=== PATIENT | male | born 1960 | race Caucasian/White ===

== ENCOUNTER 2018-02-19 06:08 | Day surgery (SDC) | payer BC ==
[~2018-02-19 06:08] MED LIST: ACETAMINOPHEN 1,000 MG/100 ML BTL IV ONE; CELECOXIB 100 MG CAPSULE PO ONE; FAMOTIDINE 20MG TABLET PO ONE; MECLIZINE 25 MG TABLET PO ONE; METOCLOPRAMIDE 10 MG TABLET PO ONE; VANCOMYCIN HCL 1,000 MG in DEXTROSE 5 % IN WATER 250 ML IVPB ONE
[2018-02-19] MEDS ORDERED: LIDOCAINE 2% MDV (20MG/ML) 20ML VIAL IV ONE (06:09)
[2018-02-19] MEDS ORDERED: VANCOMYCIN HCL 1 GM VIAL IVPB ONE ×2 (06:09)
[2018-02-19] MEDS ORDERED: PROPOFOL 10 MG/ML VIAL IV ONE (06:09)
[2018-02-19] MEDS ORDERED: KETOROLAC 30 MG/ML VIAL IVP ONE (06:09)
[2018-02-19] MEDS ORDERED: TRANEXAMIC ACID 1,000 MG/10 ML ML IV ONE ×2 (06:09)
[2018-02-19] MEDS ORDERED: BUPIVACAINE 0.5% W/EPI MPF 30 ML VIAL IVP ONE ×2 (06:09)
[2018-02-19] MEDS ORDERED: BUPIVACAINE LIPOSOME 266MG/20ML VIAL IV ONE (06:09)
[2018-02-19] MEDS ORDERED: MIDAZOLAM HCL 2MG/2ML VIAL IV ONE (06:09)
[2018-02-19] MEDS ORDERED: ROPIVACAINE HCL (NAROPIN) /PF 5MG/ML 20ML VIAL IV ONE (06:09)
[2018-02-19] MEDS ORDERED: DEXAMETHASONE 4 MG/ML 1ML VIAL IVP ONE (06:09)
[2018-02-19 06:40] LABS: ABO GROUP O; RH TYPE NEGATIVE
[2018-02-19 06:52] LABS: ANTIBODY SCREEN NEGATIVE (NEGATIVE)
[2018-02-19] MEDS ORDERED: PROMETHAZINE HCL 12.5 MG in 0.9 % SODIUM CHLORIDE 100ML 50 ML IVPB PRN (08:17)
[2018-02-19] MEDS ORDERED: BISACODYL 10 MG SUPP RC PRN (08:17)
[2018-02-19] MEDS ORDERED: ACETAMINOPHEN W/ CODEINE 300MG/30MG TABLET PO PRN ×2 (08:17)
[2018-02-19] MEDS ORDERED: AL HYDROX/MAG HYDROX 30ML UD PO PRN (08:17)
[2018-02-19] MEDS ORDERED: TRAMADOL HCL 50 MG TABLET PO PRN ×2 (08:17)
[2018-02-19] MEDS ORDERED: ONDANSETRON HCL IV 4 MG/2 ML VIAL IVP PRN (08:17)
[2018-02-19] MEDS ORDERED: METOCLOPRAMIDE HCL 10 MG/2 ML VIAL IVP PRN (08:17)
[2018-02-19] MEDS ORDERED: DIPHENHYDRAMINE HCL 25 MG CAPSULE PO PRN (08:17)
[2018-02-19] MEDS ORDERED: NALOXONE 0.4 MG/1 ML VIAL IVP PRN (08:17)
[2018-02-19] MEDS ORDERED: MAGNESIUM HYDROXIDE 30 ML UDC PO PRN (08:17)
[2018-02-19] MEDS ORDERED: ACETAMINOPHEN W/ CODEINE 300MG/60MG TABLET PO PRN ×2 (08:17)
[2018-02-19] MEDS ORDERED: HYDROMORPHONE HCL 2 MG/ML VIAL IM PRN ×2 (08:17)
[2018-02-19] MEDS ORDERED: KETOROLAC 30 MG/ML VIAL IVP PRN ×2 (08:17)
[2018-02-19] MEDS ORDERED: HYDROCODONE/APAP 5/325MG TABLET PO PRN ×2 (08:17)
[2018-02-19] MEDS ORDERED: ACETAMINOPHEN 325 MG TAB PO PRN (08:17)
[2018-02-19] MEDS ORDERED: ZOLPIDEM TARTRATE 5 MG TABLET PO PRN (08:17)
[2018-02-19] MEDS ORDERED: DEXTROSE 5 % AND 0.9 % NACL 1,000 ML IV PRN (11:00)
[2018-02-19] MEDS: DOCUSATE SODIUM 100 MG CAPSULE PO SCH ×2 (12:02→21:11)
[2018-02-19] MEDS: FERROUS SULFATE 325 MG TAB PO SCH ×2 (12:02→21:12)
[2018-02-19] MEDS: HYDROCODONE/APAP 7.5/325MG TABLET PO PRN ×3 (13:10→19:12)
[2018-02-19] MEDS: LISINOPRIL 10 MG TABLET PO SCH ×2 (13:46→21:21)
--- NOTE | 2018-02-19 14:27 | Operative Note ---
DATE OF SURGERY: 02/19/18 PREOPERATIVE DIAGNOSIS: END-STAGE RIGHT KNEE ARTHROSIS. POSTOPERATIVE DIAGNOSIS: END-STAGE RIGHT KNEE ARTHROSIS. PROCEDURE: RIGHT TOTAL KNEE ARTHROSCOPY. SURGEON: YOLANDA CARL M.D. ANESTHESIA: SPINAL. 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 COMPLICATIONS: NONE. BLOOD LOSS: MINIMAL. TOURNIQUET TIME: 60 MINUTES. OPERATIVE FINDINGS: Severe dugg-dt-ftwe medial compartment arthrosis. Components placed Donohue-Nephew Journey total knee arthroplasty system size 9, Oxinium femoral component size 8, tibial baseplate 9 with thick tibial poly insert, and a 38 mm cemented patellar component. INDICATIONS FOR OPERATION: This is a 57-year-old male who has had persistent pain and dysfunction in his right knee for several years, failed nonoperative treatment, and is scheduled for knee replacement. I explained all the risks and benefits thoroughly in detail for his diagnosis and procedures including but not limited to infection, nerve injury, vessel injury, persistent pain, stiffness, numbness and tingling in his knee, periprosthetic fracture, the need for resection arthroplasty should component become infected or loosened, nerve injury, vessel injury, blood clot, and need for further procedures, need for anticoagulation to prevent blood clots and the risks associated with these medications. All of his questions were answered. Rehab and course were outlined and he agreed to proceed. PROCEDURE: The patient brought to O.R. and placed in the supine position for arthroscopic surgery. Spinal anesthesia was induced and his right lower extremity and knee were prepped and draped in the usual sterile fashion. The right knee was prepped again with ChloraPrep after it was draped. Intraoperative time-out was performed. Next, the anterior incision was marked and infiltrated with 0.5% Marcaine with Epinephrine. The leg was exsanguinated with Esmarch. The knee was flexed and the tourniquet was inflated with 250 mmHg pressure. Next, the skin and subcutaneous was dissected down. Incised the capsule medially around the medial border of the patella to the tibial tubercle. Incised the vastus medialis in line with its fibers in a mid vastus approach. Partially resected the retropatellar fat pad. Elevated the capsule subperiosteally medially and then everted the patella and flexed the knee. He had severe ggmb-vg-ssgi arthrosis medial compartment. It was completely eburnated of all cartilage. Next, drilled the intercondylar drill hole, inserted intramedullary guide cheyenne with a 6 degree cutting block, aligned distal femoral condyles and pinned it in the +2 mm position. Next, we placed a sizing jig on the distal femur size to be right on size 9 through the previously placed pinholes then placed a size 9 cutting jig. We dialed in the anterior cut so it would come out flush without notching and we cut that cut and it was a good flush cut. Next, pinned the cutting jig and cut the remainder of the chamfer cuts in the usual fashion. Next, we placed a size 9 femoral component, trial component. We centered it, pinned it, and removed osteophytes off the periphery. Inserted a femoral resection collet, reamed out, and box osteotomed out with a cruciate bone block. Next, attention was turned to the tibia. Seated the spikes with the external alignment guide in the intertubercular groove off the central third tibial tubercle two fingerbreadths distally off the tibial cortex and referenced for a 7 mm cut off the higher lateral plateau. There, we pinned the cutting jig provisional between the anterior and posterior pins. We rechecked the alignment with a drop cheyenne through the cutting jig and cross-pinned it to complete its fixation, and cut the tibia. Next, removed osteophytes off the posterior femoral condyles. Checked the flexor and extensor gaps and had symmetric flexor and extensor gaps with a 9 mm thick poly insert, 2-3 mm of varus valgus laxity in flexion and extension. Overall, alignment cuts in extension was in anatomic valgus orientation with alignment cheyenne centered on the hip joint and ankle joint. Next, we took the knee in flexion and sized the tibial baseplate to a size 8. Replaced all trial components, set the rotation of the tibial baseplate to begin extension using alignment rods centered in the hip joint and ankle joint. Marked with electrocautery granado in the tibial cortex of the laser granado of the tibial baseplate. Next, attention to the patella. Measured the patella to be 27 mm. We set the cutting jig at 18 mm to allow for a 9 mm thick poly insert. We cut the patella, chamfered off the lateral patellar facet and sized it to be a 38. Drilled three peg holes and trimmed off any peripheral osteophytes. Medialized as much as possible when we drilled the three peg holes. Next, mixed cement and took the knee in flexion. Seated the tibial baseplate with the previously placed electrocautery granado, pinned it in place, and drilled out and keel punched the keel hole. We placed a bone plug in the femoral canal hole. Changed gloves and brought in a clean sheet, copiously irrigated the bony surfaces with pulsatile antibiotic solution, and exposed the proximal tibia, and then pre-coated both surfaces with antibiotic cement. Impacted down the tibial component first, removed excess cement, then the femoral component and removed excess cement. We placed a trial tibial poly liner and held the knee in extension, and clamped down the patellar component until the cement hardened. Once the cement hardened, took the knee into flexion and removed excess cement off the edges of the components. Removed the trial tibial poly insert, and injected 0.5% Marcaine with Epinephrine, Tranexamic Acid , and Exparel mixture in the capsule, mediolateral and medialis periosteum working out superficially through all of the tissues. Next, irrigated again and inserted the real tibial poly insert verifying it was interlocked medially and laterally. Final range of motion revealed the same. Next, irrigated it copiously then closed the capsule securely with running #2 quill suture. Closed the skin with 2-0 Vicryl and flexion again and placed a provisional dressing, and it will be changed to a MATRHA dressing prior to discharge likely tomorrow. cc: Dr. Marco Ackerman - [place], [place] JOB NUMBER: [id number] MTDD
--- NOTE | 2018-02-19 15:12 | Rehab Evaluation ---
Patient Information - Patient Information Diagnosis: R knee OA Ordered Treatment: PT Evaluate and Treat Status: Initial Evaluation Surgery: Yes (R knee TKA) Date of Surgery: 02/19/18 Past Medical/Surgical Hx: PAST MEDICAL/SURGICAL HISTORY Past Surgical History bilat knee scopes tonsils colon resection 12-13 yrs ago hernia repair c scopes PMH - Respiratory Hx Respiratory Disorders Yes Hx Bronchitis Yes PMH - Cardiovascular Hx Cardiovascular Disorders Yes Hx Hypertension Yes: on meds Exercise Tolerance Good Hx of Migraines Yes: occassional occular PMH - Neuro Hx Neurological Disorders Yes PMH - GI Hx Gastrointestinal Disorders Yes Comment: hx of colon resection pt had a leak PMH - Hx Genitourinary Disorders No PMH - Endocrine Hx Endocrine Disorders No PMH - Musculoskeletal Hx Musculoskeletal Disorders Yes Hx Arthritis Yes: knees PMH - Psych Hx Psychiatric Problems No PMH - Hematology/Oncology Hx Hematology/Oncology No Disorders Premorbid Status: Detail (The patient was independent with all mobility) Social History: Detail (The patient lives with spouse in a 2 story house with 2 steps at the enterance and one railing. The patient's bathroom is equipped with a walk in shower and standard toilet. No grab bars are present in the bathroom. The patient has a riser seat, a shower bench, a walker with wheels and standard cane.) Precautions: [place], Fall, Other (WBAT on the R LE) - Time With Patient Total Time Spent With Patient (Min): 30 Treatment Procedures: Detail (Initial Evaluation and gait training.) Subjective Information - Subjective Information Per Patient (The patient had no complants of pain, but did complain of tingling in R ankle and aching in whole R LE.) Objective Data - Mental Status Patient Orientation: Oriented x3 - Visual Perception Appears within normal limits for therapeutic activities - ROM Not within normal limits (The patient's R knee AROM is limited s/p surgery. All other LE AROM is WNL.) - Strength/Tone Not within normal limits (The patient's R LE strength was not tested secondary to s/p surgery however was functional ie: the patient was able to complete a SLR. The patient was unable to actively dorsiflexion which may be due to the effects of block. The patient's L LE strength was WFL.) - Bed Mobility Independent (The patient was independent with supine to and from sit transfer and scooting up in bed.) - Transfers Independent (The patient was independent with sit to and from stand transfer and toilet transfer.) - Balance Balance Sitting: Good Balance Standing: Good - Gait Detail (The patient ambulated with front wheeled walker a distance of 80 feet x 1 with WBAT on R LE with supervision for safety only and occasional verbal cues for proper techique.) Therapy Assessment - Therapy Assessment Detail (The patient was independent with bed mobility and transfers and required supervision only with ambulation. Feel the patient will progress well with mobility.) Problem List - Problem List Physical Therapy Problem List: Detail (Decreased R knee AROM and decreased R LE strength.) Goals - Goals Physical Therapy Goals: 1) The patient will be independent with HEP of TKA exercises. 2) The patient will ambulate on stairs with supervision for safety using proper technique. Prognosis - Prognosis Good Plan - Plan Physical Therapy Plan: PT 1-2 sessions for gait training on stairs and instruction in HEP.
[2018-02-19] MEDS: VANCOMYCIN HCL 1,000 MG in DEXTROSE 5 % IN WATER 250 ML IVPB SCH ×2 (19:06)
[2018-02-19] MEDS ORDERED: ATORVASTATIN 20 MG TABLET PO SCH (22:00)
[2018-02-20] MEDS: HYDROCODONE/APAP 7.5/325MG TABLET PO PRN ×3 (01:35→10:17)
[2018-02-20] MEDS: VANCOMYCIN HCL 1,000 MG in DEXTROSE 5 % IN WATER 250 ML IVPB SCH ×2 (06:12)
[2018-02-20 07:27] LABS: HEMATOCRIT 36.8 % (42.0-52.0); HEMOGLOBIN 11.6 gm/dl (14.0-18.0)
--- NOTE | 2018-02-20 08:21 | Rehab Evaluation ---
Patient Information - Patient Information Diagnosis: R knee OA Ordered Treatment: OT Evaluate and Treat Status: Initial Evaluation Surgery: Yes (R knee TKA) Date of Surgery: 02/19/18 Past Medical/Surgical Hx: PAST MEDICAL/SURGICAL HISTORY Past Surgical History bilat knee scopes tonsils colon resection 12-13 yrs ago hernia repair c scopes PMH - Respiratory Hx Respiratory Disorders Yes Hx Bronchitis Yes PMH - Cardiovascular Hx Cardiovascular Disorders Yes Hx Hypertension Yes: on meds Exercise Tolerance Good Hx of Migraines Yes: occassional occular PMH - Neuro Hx Neurological Disorders Yes PMH - GI Hx Gastrointestinal Disorders Yes Comment: hx of colon resection pt had a leak PMH - Hx Genitourinary Disorders No PMH - Endocrine Hx Endocrine Disorders No PMH - Musculoskeletal Hx Musculoskeletal Disorders Yes Hx Arthritis Yes: knees PMH - Psych Hx Psychiatric Problems No PMH - Hematology/Oncology Hx Hematology/Oncology No Disorders Premorbid Status: Detail (The patient was independent with all mobility, he and spouse share home mgmt, meal prep and laundry and 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 He will be staying on the first floor temporarily. The patient's bathroom is equipped with a walk in shower and standard toilet. No grab bars are present in the bathroom. The patient has a riser seat, a shower bench, a walker with wheels and standard cane.) Precautions: [place], Fall, Other (WBAT on the R LE) - Time With Patient Total Time Spent With Patient (Min): 40 Treatment Procedures: Detail (OT eval low complexity) Subjective Information - Subjective Information Per Patient Objective Data - Pain Pain Present: Yes (08/03) - Mental Status Patient Orientation: Oriented x3 - Visual Perception Appears within normal limits for therapeutic activities (Pt wears glasses) - ROM Within normal limits (Ke UE AROM WNL) - Strength/Tone Within normal limits (Ke UE strength WNL) - Coordination Appears within normal limits for therapeutic activities - Bed Mobility Independent (Ind with supine to sit) - Transfers Independent (Ind with sit to stand from EOB) - Balance Balance Sitting: Good Balance Standing: Good - Sensation Intact - Gait Detail (Pt ambulated in hallway with 2 wheeled walker Indly.) - ADL's/IADL's Detail (Pt educated and able to demonstrate learning of modified LE dressing techniques including doffing slipper socks and donning shorts, socks and tennis shoes. Reviewed kitchen and shower safety and modifications, pt verbalized understanding.) Therapy Assessment - Therapy Assessment Detail (Pt is safe and Ind with modified LE dressing techniques.) Problem List - Problem List Physical Therapy Problem List: Detail (Decreased R knee AROM and decreased R LE strength.) Occupational Therapy Problem List: Detail (No current IP OT problems identified. ) Goals - Goals Physical Therapy Goals: 1) The patient will be independent with HEP of TKA exercises. 2) The patient will ambulate on stairs with supervision for safety using proper technique. Occupational Therapy Goals: No current IP OT goals identified. Prognosis - Prognosis Good Plan - Plan Physical Therapy Plan: PT 1-2 sessions for gait training on stairs and instruction in HEP. Occupational Therapy Plan: No further IP OT recommended. Thank you for this referral.
[2018-02-20] MEDS: FERROUS SULFATE 325 MG TAB PO SCH (09:03)
[2018-02-20] MEDS: DOCUSATE SODIUM 100 MG CAPSULE PO SCH (09:04)
--- NOTE | 2018-02-20 09:48 | Physical Therapy Tx Note ---
Physical Therapy Tx Note - Treatment Note Tolerated: Good Total Time Spent With Patient: 30 Physical Therapy Tx Note: Detail (The patient ambulated on 3 steps with use of one railing and folded walker with supervision for safety and using proper technique. The patient's spouse was present to observe proper stair climbing technique and how to assist. The patient completed TKA exercises including ankle pumps, quad sets, gluteal sets, hamstring sets, SLR and heel slides seated. The patient has met all inpatient goals and is discharged from inpatient PT.) Physical Therapy Problem List: Detail (Decreased R knee AROM and decreased R LE strength.) Physical Therapy Goals: GOALS MET: 1) The patient will be independent with HEP of TKA exercises. 2) The patient will ambulate on stairs with supervision for safety using proper technique. Physical Therapy Plan: All inpatient goals have been met. The patient has been discharged from inpatient PT and patient is to continue with Home PT.
[2018-02-20] MEDS ORDERED: CELECOXIB 100 MG CAPSULE PO SCH (10:00)
[2018-02-20] MEDS ORDERED: RIVAROXABAN 10 MG TABLET PO SCH (10:00)
== END 2018-02-20 11:35 | disposition home health service (06) ==
LOC: SUR 06:08 → MEDSURG 11:12 → SUR 02-20 11:35
PROVIDERS: ATTEND Orthopaedic Surgery
DX: M17.11 Unilateral primary osteoarthritis, right knee (principal); I10 Essential (primary) hypertension; E78.00 Pure hypercholesterolemia, unspecified
CPT/HCPCS: 27447; 01402; 64447; 85018; 85014; 86900; 86901; 86850; J1885; J3370 ×2; J3490 ×2; C9290; J2795; G8978; G8979 ×2; G8980; G8987; G8988; G8989; 76942; 97110; J7042; J7060